=== PATIENT | female | born 1965 | race Caucasian/White ===

== ENCOUNTER 2017-02-21 07:05 | Emergency (ER) | payer SELFPAY ==
[~2017-02-21] VITALS: Ht 160 cm; Wt 61.2 kg
[2017-02-21] MEDS ORDERED: NAPROSYN500 MG PO (07:46)
[2017-02-21 08:00] VITALS: BP 126/90
== END 2017-02-21 08:03 | disposition home or self-care (01) | DRG 563 ==
LOC: ED 07:05
DX: S43.401A Unspecified sprain of right shoulder joint, initial encounter (principal); W19.XXXA Unspecified fall, initial encounter; Y92.009 Unspecified place in unspecified non-institutional (private) residence as the place of occurrence of the external cause

== ENCOUNTER 2017-06-21 13:00 | Emergency (ER) | payer SELFPAY ==
[~2017-06-21] VITALS: Ht 160 cm; Wt 63.0 kg
[~2017-06-21 13:00] MED LIST: NAPROSYN500 MG PO
[2017-06-21] MEDS ORDERED: AUGMENTIN875TAB PO (13:23)
[2017-06-21] MEDS ORDERED: TRAMADOL HYDROC50 MG PO (13:23)
[2017-06-21 13:37] VITALS: BP 110/75
== END 2017-06-21 13:55 | disposition home or self-care (01) | DRG 605 ==
LOC: ED 13:00
DX: S61.551A Open bite of right wrist, initial encounter (principal); W54.0XXA Bitten by dog, initial encounter; Y93.9 Activity, unspecified; Y92.009 Unspecified place in unspecified non-institutional (private) residence as the place of occurrence of the external cause

== ENCOUNTER 2024-02-23 10:34 | Emergency (ER) | payer SELFPAY ==
[~2024-02-23] VITALS: Ht 160 cm; Wt 58.5 kg
[2024-02-23] VITALS (8 sets, daily range): BP systolic 97–114; BP diastolic 72–87
[~2024-02-23 10:34] MED LIST changes: +AUGMENTIN875TAB PO; +TRAMADOL HYDROC50 MG PO; +ZOFRAN4 MG/TAB PO
[2024-02-23] MEDS ORDERED: KETOROLAC TROMETHAMINE 30 MG/ML SDV IV ONE (11:00)
[2024-02-23 11:37] LABS: URINE BLOOD DIPSTICK Trace-lysed (NEGATIVE); URINE GLUCOSE - DIPSTICK 100 mg/dL (NEGATIVE); URINE KETONE Trace mg/dL (NEGATIVE); URINE NITRITE - DIPSTICK Negative (Negative); URINE PROTEIN - DIPSTICK 100 mg/dL (NEG-TRACE); URINE SPECIFIC GRAVITY >=1.030
[2024-02-23 11:41] LABS: URINE COLOR Dark yellow; URINE LEUK ESTERASE Small (NEGATIVE)
[2024-02-23 11:45] LABS: BASO% 0.5 % (0-3); EOS% 0.8 % (0-8); HEMATOCRIT 46.3 % (37.0-47.0); HEMOGLOBIN 14.5 g/dl (12.0-16.0); IMMATURE GRANULOCYTES 0.2 % (0.0-5.0); LYMPH% 20.4 % (15-41); MEAN CELL VOLUME 96.3 fL CALC (80.0-100.0); MEAN CORPUSCULAR HGB 30.1 pG CALC (26.0-32.0); MEAN CORPUSCULAR HGB CONC 31.3 g/dL CAL (32.0-36.0); MONO% 9.6 % (2-13); NEUT# 4.13 thou/uL (2.00-7.15); NEUT% 68.5 % (42-76); RED BLOOD COUNT 4.81 mill/uL (4.20-5.60); RED CELL DISTRI WIDTH 14.8 % (11.5-15.5); URINE BACTERIA FEW hpf; URINE RBC 0-2 RBC/hpf (0-5); URINE SQUAMOUS EPITHELIAL CELL FEW EPI/hpf (0-FEW)
[2024-02-23 11:46] LABS: URINE HYALINE CAST FEW lpf (NONE-RARE)
[2024-02-23 11:52] LABS: BILIRUBIN, TOTAL 1.2 mg/dL (0.02-1.3); CREATININE 0.9 mg/dL (0.5-1.0); POTASSIUM 4.1 mmol/l (3.5-5.1); TOTAL PROTEIN 6.1 g/dL (6.3-8.2)
[2024-02-23 11:57] LABS: ALBUMIN 3.4 g/dL (3.2-5.0)
== END 2024-02-23 16:16 | disposition left against medical advice (07) | DRG 204 ==
LOC: ED 10:34
PROVIDERS: Emergency Medicine
DX: R06.02 Shortness of breath (principal); I74.09 Other arterial embolism and thrombosis of abdominal aorta; R18.8 Other ascites; R19.00 Intra-abdominal and pelvic swelling, mass and lump, unspecified site; I50.9 Heart failure, unspecified; I71.43 Infrarenal abdominal aortic aneurysm, without rupture; Z53.29 Procedure and treatment not carried out because of patient's decision for other reasons
CPT/HCPCS: Q9967